=== PATIENT | female | born 1995 | race Two or more races ===

== ENCOUNTER 2022-04-24 11:58 | Inpatient (IN) | payer OTHER ==
[~2022-04-24] VITALS: Ht 154.9 cm; Wt 82.6 kg
[2022-04-24] MEDS ORDERED: IRON236 MG PO (12:03)
[2022-04-24] MEDS ORDERED: PRENATAL TABLE1 EAC1 PO (12:03)
== END 2022-04-27 12:57 | disposition home or self-care (01) | DRG 788 ==
LOC: LDR 11:58 → OB/GYN 11:58
PROVIDERS: ADMIT Specialist; ATTEND Specialist
PROC: 4A1HXCZ Monitoring of Products of Conception, Cardiac Rate, External Approach (ICD-10-PCS; 2022-04-24)
PROC: 10D00Z1 Extraction of Products of Conception, Low, Open Approach (ICD-10-PCS; principal; 2022-04-24 21:00)
DX: O62.1 Secondary uterine inertia (principal); O42.02 Full-term premature rupture of membranes, onset of labor within 24 hours of rupture; Z3A.38 38 weeks gestation of pregnancy; Z37.0 Single live birth; Z20.822 Contact with and (suspected) exposure to COVID-19